=== PATIENT | female | born 1975 | race Two or more races ===

== ENCOUNTER 2025-03-06 03:19 | Emergency (ER) | payer MEDICAID, OTHER ==
[~2025-03-06] VITALS: Ht 170.2 cm; Wt 57.2 kg
--- NOTE | 2025-03-06 04:10 | ED.PDOC ---
May. trauma (HPI) HPI Comments PT PRESENTED TO ED FOR ACUTE CHRONIC BACK PAIN/ LLE PAIN S/P MECHANICAL FALL YESTERDAY @1900. DENIES NUMBNESS, WEAKNESS, LOSS OF BOWEL BLADDER CONTROL, SADDLE ANESTHESIA OR ANY OTHER KNOWN INJURIES. Time Seen by MD: 03:32 Reviewed notes: Nurses Notes, Medications, Allergies Allergies: Coded Allergies: Codeine (Verified Allergy, Unknown, 03/06/25) Erythromycin (Verified Allergy, Unknown, 03/06/25) Risperidone (Verified Allergy, Unknown, 03/06/25) Information Source: Patient Constitutional: denies: chills, diaphoresis, fatigue, fever, malaise, sweats, weakness, others EENTM: denies: blurred vision, double vision, ear bleeding, ear discharge, ear drainage, ear pain, ear ringing, eye pain, eye redness, hearing loss, mouth pain, mouth swelling, nasal discharge, nose bleeding, nose congestion, nose pain, photophobia, tearing, throat pain, throat swelling, voice changes, others Respiratory: denies: cough, hemoptysis, orthopnea, SOB at rest, shortness of breath, SOB with excertion, stridor, wheezing, others Cardiovascular: denies: chest pain, dizzy spells, diaphoresis, Dyspnea on exertion, edema, irregular heart beat, left arm pain, lightheadedness, palpitations, PND, syncope, others Gastrointestinal: denies: abdomen distended, abdominal pain, blood streaked bowels, constipated, diarrhea, dysphagia, difficulty swallowing, hematemesis, melena, nausea, poor appetite, poor fluid intake, rectal bleeding, rectal pain, vomiting, others Genitourinary: denies: abnormal vagina bleeding, burning, dyspareunia, dysuria, flank pain, frequency, hematuria, incontinence, pain, , vagina discharge, urgency, others Neurological: denies: dizziness, fainting, headache, left sided numbness, left sided weakness, numbness, paresthesia, pre-existing deficit, right sided numbness, right sided weakness, seizure, speech problems, tingling, tremors, weakness, others Musculoskeletal: reports: back pain; denies: gout, joint pain, joint swelling, muscle pain, muscle stiffness, neck pain, others Integumetry: denies: bruises, change in color, change in hair/nails, dryness, laceration, lesions, lumps, rash, wounds, others Allergic/Immunocompromised: denies: Difficulty Healing, Frequent Infections, Hives, Itching, others Hematologic/Lymphatic: denies: anemia, blood clots, easy bleeding, easy bruising, swollen glands, others Endocrine: denies: excessive hunger, excessive sweating, excessive thirst, excessive urination, flushing, intolerance to cold, intolerance to heat, unexplained weight gain, unexplained weight loss, others Psychiatric: denies: anxiety, bipolar disorder, depression, hopeless, panic disorder, schizophrenia, sleepless, suicidal, others Physical Exam General Appearance: No Apparent Distress, Normal HEENT: Pharynx Normal Neck: Full Range of Motion, Non-Tender Respiratory: Lungs Clear, No Respiratory Distress, Normal Breath Sounds Cardiovascular: No Murmur, Normal Peripheral Pulses, Regular Rate/Rhythm Breast Exam: Deferred Gastrointestinal: No Organomegaly, Non Tender, Soft Genitalia: Deferred Pelvic: Deferred Rectal: Deferred Extremities: Normal capillary refill, Normal inspection, Normal range of motion, Non-tender, No pedal edema Musculoskeletal : Location: Bilateral Extremity Location: Back (MODERATE TENDERNESS ON PALPATION L1 THROUGH L5 PARASPINAL MUSCLES LEFT SIDE NO NOTED SPASMS OR VISIBLE EXTERNAL TRAUMA. NEGATIVE STRAIGHT LEG RAISE BILATERAL NO NOTED CREPITUS OR STEP-OFFS ALONG LUMBAR SPINE NO SADDLE ANESTHESIA. STRENGTH SENSORY MOTION INTACT POSITIVE PEDAL PULSES) Apperance: Normal Neurologic: Alert, No Motor Deficits, Normal Affect, Normal Mood, No Sensory Deficits Cerebellar Function: Normal Reflexes: Normal Skin: Dry, Normal Color, Warm Lymphatic: No Adenopathy Was a procedure done? Was a procedure done?: No Differential Diagnosis Multiple Trauma: Fractures, Spine Injury, Abrasions, Contusion X-Ray, Labs, Meds, VS Vital Signs Date Time Temp Pulse Resp B/P (MAP) Pulse Ox O2 Delivery O2 Flow Rate FiO2 03/06/25 04:24 98.2 101 20 147/84 (105) 98 98.2 X-Ray, Labs, Meds, VS Comment LUMBAR SPINE X-RAY SHOWS INDETERMINATE L3 COMPRESSION FRACTURE. ALSO NOTED MULTILEVEL SPONDYLOSIS. PATIENT WAS GIVEN TORADOL 60 MG IM AND NORCO 10 MG P.O. REPORTS IMPROVEMENT IN PAIN AND FUNCTION REQUESTING DISCHARGE AT THIS TIME. SCR IPT TRIAL OF INDOMETHACIN. ADVISED TO TAKE MEDICATIONS PRESCRIBED SIDE EFFECTS DISCUSSED. ADVISED TO FOLLOW UP WITH HER PCP IN 2-3 DAYS CONSIDER MRI FOR CONTINUED PAIN. ER RETURN PRECAUTIONS GIVEN FOR SADDLE ANESTHESIA, WEAKNESS, NUMBNESS, OR LOSS OF BOWEL BLADDER CONTROL. PATIENT INDICATED UNDERSTANDING AND AGREES WITH DISCHARGE PLAN OF CARE. Time of 1ST Reevaluation: 04:10 Reevaluation 1ST: Unchanged Patient Education/Counseling: Diagnosis, Treatment, Prognosis, Need For Follow Up Family Education/Counseling: Diagnosis, Treatment, Prognosis, Need For Follow Up Departure 1 Departure Time of Disposition: 05:17 Impression: Primary Impression: Compression fracture of L3 vertebra Qualified Codes: S32.030A - Wedge compression fracture of third lumbar vertebra, initial encounter for closed fracture Disposition: 01 HOME / SELF CARE / HOMELESS Condition: Stable e-Prescriptions Indomethacin (Indomethacin) 50 Mg Cap 1 CAP PO TID PRN for 5 Days, #15 CAP Prov: JOSTIN SAINZ 03/06/25 Discharged With: Significant Other Critical Care Note Critical Care Time?: No Stability Stability form required: JOSTIN Mclaughlin Mar 06, 2025 04:10
--- NOTE | 2025-03-06 05:06 | DVH ---
INDICATION: LOW BACK PAIN COMPARISON: None TECHNIQUE: 3 views of the lumbar spine were obtained. FINDINGS: The lumbar vertebral alignment is normal. Mild levocurvature of the lumbar spine centered at L2-3. The intervertebral disc spaces are well-maintained. No significant facet arthropathy is noted. L3 anterior wedge compression deformity. The paravertebral soft tissues are grossly unremarkable. IMPRESSION: 1. Age-indeterminate 3 anterior wedge compression deformity. 2. Mild levocurvature of the lumbar spine.
[2025-03-06] MEDS ORDERED: INDO50CA82 PO (05:19)
[2025-03-06 06:45] VITALS: BP 133/85; PULSE 69; RESP 14; TEMP 98; O2SAT 100
[2025-03-06] MEDS: HYDROcodone-ACET 10/325MG TAB PO ONE (06:53)
[2025-03-06] MEDS: KETOROLAC TROMETH 60MG/2ML VIAL IM ONE (06:54)
== END 2025-03-06 07:18 | disposition home or self-care (01) ==
LOC: ER 03:19
DX: M48.56XA Collapsed vertebra, not elsewhere classified, lumbar region, initial encounter for fracture (principal); Z88.1 Allergy status to other antibiotic agents; Z88.5 Allergy status to narcotic agent; Z88.8 Allergy status to other drugs, medicaments and biological substances; W18.39XA Other fall on same level, initial encounter; Y93.89 Activity, other specified; Y92.89 Other specified places as the place of occurrence of the external cause; Y99.8 Other external cause status
CPT/HCPCS: 72100; 96372; 99283; J1885

== ENCOUNTER 2025-03-30 23:24 | Emergency (ER) | payer OTHER ==
[~2025-03-30] VITALS: Ht 170.2 cm; Wt 55.8 kg
--- NOTE | 2025-03-30 23:40 | ED.PDOC ---
Eye-HPI HPI Comments 49-YEAR-OLD FEMALE PRESENTS TO ER WITH COMPLAINTS OF SORE THROAT X1 WEEK. PATIENT REPORTS SHE HAS BEEN EXPERIENCING SORE THROAT PAIN WITH ASSOCIATED PAINFUL SWALLOWING X1 WEEK. SHE RATES HER CURRENT SORE THROAT PAIN A 10/10. DENIES USE OF MEDICATIONS FOR CURRENT SYMPTOMS. REPORTS THAT SHE IS ABLE TO SWALLOW LIQUIDS BUT HAS NOT ATTEMPTED TO SWALLOW SOLIDS AND TWO DAYS. DENIES FEVER, BODY ACHES, CHILLS, SHORTNESS OF BREATH, CHEST PAIN, COUGH, N/V OR ANY FURTHER SYMPTOMS/COMPLAINTS Time Seen by MD: 23:29 Primary Care Provider: UNKNOWN Reviewed Notes: Nurses Notes, Medications, Allergies Allergies: Coded Allergies: Codeine (Verified Allergy, Unknown, 03/06/25) Erythromycin (Verified Allergy, Unknown, 03/06/25) Risperidone (Verified Allergy, Unknown, 03/06/25) Home Meds Active Scripts Acetaminophen (Acetaminophen) 500 Mg Tab, 500 MG PO Q4HPRN, #30 TAB 0 Refills Prov:AHSAN FRIEND 03/30/25 Prednisone (Prednisone) 20 Mg Tab, 20 MG PO BID for 5 Days, #10 TAB 0 Refills Prov:AHSAN FRIEND 03/30/25 Amoxicillin & Pot Clavulanate (Amoxicillin/Potassium Cla) 875 Mg Tab, 1 TAB PO BID for 7 Days, #14 TAB 0 Refills Prov:AHSAN FRIEND 03/30/25 Information Source: Patient Past Medical History PAST MEDICAL HISTORY: Anxiety, Asthma, COPD, Depression, Thyroid Past Medical History (Other): Bipolar Lumbar compression fracture Surgical History: BTL Family History Family History: Unknown Social History Smoker: Non-Smoker Alcohol: Denies ETOH Use Drugs: Denies Drug Use Lives In: Home Constitutional: denies: chills, diaphoresis, fatigue, fever, malaise, sweats, weakness, others EENTM: reports: others (As stated in HPI) Respiratory: denies: cough, hemoptysis, orthopnea, SOB at rest, shortness of breath, SOB with excertion, stridor, wheezing, others Cardiovascular: denies: chest pain, dizzy spells, diaphoresis, Dyspnea on exertion, edema, irregular heart beat, left arm pain, lightheadedness, palpitations, PND, syncope, others Gastrointestinal: denies: abdomen distended, abdominal pain, blood streaked bowels, constipated, diarrhea, dysphagia, difficulty swallowing, hematemesis, melena, nausea, poor appetite, poor fluid intake, rectal bleeding, rectal pain, vomiting, others Genitourinary: denies: abnormal vagina bleeding, burning, dyspareunia, dysuria, flank pain, frequency, hematuria, incontinence, pain, , vagina discharge, urgency, others Neurological: denies: dizziness, fainting, headache, left sided numbness, left sided weakness, numbness, paresthesia, pre-existing deficit, right sided numbness, right sided weakness, seizure, speech problems, tingling, tremors, weakness, others Musculoskeletal: denies: back pain, gout, joint pain, joint swelling, muscle pain, muscle stiffness, neck pain, others Integumetry: denies: bruises, change in color, change in hair/nails, dryness, laceration, lesions, lumps, rash, wounds, others Allergic/Immunocompromised: denies: Difficulty Healing, Frequent Infections, Hives, Itching, others Hematologic/Lymphatic: denies: anemia, blood clots, easy bleeding, easy bruising, swollen glands, others Endocrine: denies: excessive hunger, excessive sweating, excessive thirst, excessive urination, flushing, intolerance to cold, intolerance to heat, unexplained weight gain, unexplained weight loss, others Psychiatric: denies: anxiety, bipolar disorder, depression, hopeless, panic disorder, schizophrenia, sleepless, suicidal, others Physical Exam General Appearance: No Apparent Distress HEENT: PERRL/EOMI, Pharyngeal Erythema (Mild swelling/erythema and white exudates noted to bilateral tonsils. Uvula-normal), TMs Normal Neck: Full Range of Motion, Non-Tender, Normal Respiratory: Chest Non-Tender, Lungs Clear, No Accessory Muscle Use, No Respiratory Distress, Normal Breath Sounds Cardiovascular: No Murmur, No Gallop, Regular Rate/Rhythm Breast Exam: Deferred Gastrointestinal: NOT DONE Genitalia: Deferred Pelvic: Deferred Rectal: Deferred Extremities: Normal capillary refill, Normal range of motion Neurologic: Alert, No Motor Deficits, Normal Affect, Normal Mood, No Sensory Deficits Cerebellar Function: Normal Reflexes: Normal Skin: Dry, Normal Color, Warm Lymphatic: No Adenopathy Was a procedure done? Was a procedure done?: No Sedation Sedation?: No EENT DIFF Eye: N/A Sore Throat: Epiglottitis, Mononeucleosis, Peritonsillar Abscess X-Ray, Labs, Meds, VS Vital Signs Date Time Temp Pulse Resp B/P (MAP) Pulse Ox O2 Delivery O2 Flow Rate FiO2 03/30/25 23:47 98.2 105 16 128/93 (105) 100 98.2 Rocephin 1 g IM ordered Solu-Medrol 125 mg IM improved Patient had improvement in symptoms, tolerating p.o. intake well and in no distress prior to discharge Advised to drink plenty of fluids Advised to follow up with PCP in 1-2 days Patient verbalized understanding and agreeable with current plan of care Advised to return to ER immediately if symptoms worsen Time of 1ST Reevaluation: 23:20 Reevaluation 1ST: N/A Patient Education/Counseling: Diagnosis, Treatment, Prognosis, Need For Follow Up Family Education/Counseling: No Family Present SEPSIS Sepsis Screen Vital Signs Date Time Temp Pulse Resp B/P (MAP) Pulse Ox O2 Delivery O2 Flow Rate FiO2 03/30/25 23:47 98.2 105 16 128/93 (105) 100 98.2 Departure 1 Departure Time of Disposition: 23:42 Impression: Primary Impression: Acute tonsillitis Qualified Codes: J03.90 - Acute tonsillitis, unspecified Disposition: 01 HOME / SELF CARE / HOMELESS Condition: Stable e-Prescriptions Acetaminophen (Acetaminophen) 500 Mg Tab 500 MG PO Q4HPRN, #30 TAB 0 Refills Prov: AHSAN FRIEND 03/30/25 Prednisone (Prednisone) 20 Mg Tab 20 MG PO BID for 5 Days, #10 TAB 0 Refills Prov: AHSAN FRIEND 03/30/25 Amoxicillin & Pot Clavulanate (Amoxicillin/Potassium Cla) 875 Mg Tab 1 TAB PO BID for 7 Days, #14 TAB 0 Refills Prov: AHSAN FRIEND 03/30/25 Discharged With: Self Critical Care Note Critical Care Time?: No Stability Stability form required: No Heart Score Heart Score: Heart Score Response (Comments) Value History N/A 0 EKG N/A 0 Age N/A 0 Risk Factors N/A 0 Troponin N/A 0 Total 0 AHSAN FRIEND Mar 30, 2025 23:40
[2025-03-30] MEDS: methylPREDNISolone SOD SUCC 125 MG/2 ML VL IM ONE (23:45)
[2025-03-30] MEDS: cefTRIAXone SOD 1,000 MG VL IM ONE (23:45)
[2025-03-30] MEDS ORDERED: AMOX875T4 PO (23:58)
[2025-03-30] MEDS ORDERED: PRED20TA2 PO (23:58)
[2025-03-30] MEDS ORDERED: ACET500T58 PO (23:58)
[2025-03-31] MEDS: LIDOCAINE 1% HCL (LOCAL ANESTH.) INJ 20ML MDV IJ ONE (00:29)
[2025-03-31 00:30] VITALS: BP 128/93; PULSE 105; RESP 20; TEMP 98.2; O2SAT 100
== END 2025-03-31 00:33 | disposition home or self-care (01) ==
LOC: ER 23:24
DX: J03.90 Acute tonsillitis, unspecified (principal); F41.9 Anxiety disorder, unspecified; J45.909 Unspecified asthma, uncomplicated; F32.A Depression, unspecified; J44.89 Other specified chronic obstructive pulmonary disease; Z79.52 Long term (current) use of systemic steroids; Z88.1 Allergy status to other antibiotic agents; Z88.5 Allergy status to narcotic agent; Z88.8 Allergy status to other drugs, medicaments and biological substances; Z98.51 Tubal ligation status; Z79.899 Other long term (current) drug therapy
CPT/HCPCS: 96372; 99284; J0696; J2003; J2919